=== PATIENT | male | born 1985 | race African-American/Black ===

== ENCOUNTER 2021-01-10 02:32 | Emergency (ER) | payer OTHER ==
[2021-01-10] MEDS ORDERED: KETOROLAC TROMETHAMINE 15 MG/ML VIAL IVPUSH ONE (02:43)
[2021-01-10] MEDS ORDERED: LIDOCAINE HCL 1%, 10 MG/ML (50 mL VIAL) SQ ONE (02:43)
[2021-01-10] MEDS ORDERED: KETOROLAC TROMETHAMINE 15 MG/ML VIAL ONE (02:44)
[2021-01-10] MEDS ORDERED: LIDOCAINE HCL 1%, 10 MG/ML (20ML VIAL) ONE (02:44)
[2021-01-10 03:03] VITALS: BMI 23.6
[2021-01-10 03:14] VITALS: PULSE 94
[2021-01-10] MEDS ORDERED: PROPOFOL 200 MG/20 ML VIAL IVPUSH ONE ×2 (03:37→04:19)
[2021-01-10] MEDS ORDERED: SODIUM CHLORIDE 1,000 ML IV STA (03:42)
[2021-01-10] MEDS ORDERED: PROPOFOL 20 ML ONE (03:43)
[2021-01-10 06:18] VITALS: BP 130/85
== END 2021-01-10 05:04 | disposition home or self-care (01) ==
LOC: JER 02:32
PROC: 0RSJXZZ Reposition Right Shoulder Joint, External Approach (ICD-10-PCS; principal; 2021-01-10)
PROC: 3E0333Z Introduction of Anti-inflammatory into Peripheral Vein, Percutaneous Approach (ICD-10-PCS; 2021-01-10)
PROC: 3E033FZ Introduction of Intracirculatory Anesthetic into Peripheral Vein, Percutaneous Approach (ICD-10-PCS; 2021-01-10)
PROC: 3E0337Z Introduction of Electrolytic and Water Balance Substance into Peripheral Vein, Percutaneous Approach (ICD-10-PCS; 2021-01-10)
DX: S43.004A Unspecified dislocation of right shoulder joint, initial encounter (principal)
CPT/HCPCS: 73030-TC-RT-FY; 99285-25